=== PATIENT | female | born 1995 | race Caucasian/White ===

== ENCOUNTER 2018-02-28 13:57 | Emergency (ER) | payer OTHER ==
[2018-02-28 14:05] VITALS: BP 134/75
[2018-02-28] MEDS ORDERED: KETOROLAC 60 MG/2 ML VIAL. IM ONE (15:00)
[2018-02-28] MEDS ORDERED: CYCL-331 PO (15:52)
[2018-02-28] MEDS ORDERED: NAPR-683 PO (15:52)
--- NOTE | 2018-02-28 15:52 | PHYS DOC ---
Past History Past Medical History: Asthma Past Surgical History: Other Alcohol Use: None Drug Use: None Adult General Chief Complaint Chief Complaint: BACK PAIN OR INJURY HPI HPI Patient is a 23 year old female who presents with complaining of bilateral low back pain. Patient states she tried to clean her bed last night and had multiple movements of her back. Patient complaining of lower back pain since this morning as a constant pain that getting worse with movement. Patient denies fever and chills, abdominal pain, urinary symptom, focal neuro deficit. Review of Systems Review of Systems Constitutional: Denies fever or chills [] Eyes: Denies change in visual acuity, redness, or eye pain [] HENT: Denies nasal congestion or sore throat [] Respiratory: Denies cough or shortness of breath [] Cardiovascular: No additional information not addressed in HPI [] GI: Denies abdominal pain, nausea, vomiting, bloody stools or diarrhea [] : Denies dysuria or hematuria [] Musculoskeletal: Reports back pain] Integument: Denies rash or skin lesions [] Neurologic: Denies headache, focal weakness or sensory changes [] Endocrine: Denies polyuria or polydipsia [] All other systems were reviewed and found to be within normal limits, except as documented in this note. Current Medications Current Medications Current Medications Medications (Trade) Dose Ordered Sig/[facility] Start Time Stop Time Status Last Admin Dose Admin Ketorolac Tromethamine (Toradol Im) 60 mg 1X ONCE 02/28/18 15:00 02/28/18 15:06 DC 02/28/18 15:19 60 MG Allergies Allergies Allergies Coded Allergies Type Severity Reaction Last Updated Verified Penicillins Allergy Unknown 02/28/18 Yes amoxicillin Allergy Unknown 02/28/18 Yes Physical Exam Physical Exam Constitutional: Well developed, well nourished, mild distress, non-toxic appearance. [] HENT: Normocephalic, atraumatic Eyes: PERRLA, EOMI, conjunctiva normal, no discharge. [] Neck: Normal range of motion, no tenderness, supple, no stridor. [] Cardiovascular:Heart rate regular rhythm, no murmur [] Lungs & Thorax: Bilateral breath sounds clear to auscultation [] Abdomen: Bowel sounds normal, soft, no tenderness, no masses, no pulsatile masses. [] Skin: Warm, dry, no erythema, no rash. [] Back: No midline tenderness, no CVA tenderness, bilateral lower extremity paraspinal tenderness. [] Extremities: No tenderness, no cyanosis, no clubbing, ROM intact, no edema. [] Neurologic: Alert and oriented X 3, normal motor function, normal sensory function, no focal deficits noted. [] Psychologic: Affect normal, judgement normal, mood normal. [] Current Patient Data Vital Signs Vital Signs Date Time Temp Pulse Resp B/P (MAP) Pulse Ox O2 Delivery O2 Flow Rate FiO2 02/28/18 14:05 98.8 99 20 100 Room Air EKG EKG [] Radiology/Procedures Radiology/Procedures [] Course & Med Decision Making Course & Med Decision Making discharge: I've spoken with the patient and/or caregivers. I've explained the patient's condition, diagnosis and treatment plan based on information available to me at this time. I've answered the patient's and/or caregivers questions and addressed any concerns. The patient and/or caregivers have a good understanding the patient's diagnosis, condition and treatment plan as can be expected at this point. Vital signs have been stabilized. The patient's condition is stable for discharge from the emergency department. The patient will pursue further outpatient evaluation with her primary care provider or other designated consulting physician as outlined in the discharge instructions. Patient and/or caregivers are agreeable to this plan of care and follow-up instructions have been explained in detail. The patient and/or caregivers have received these instructions in written format and expressed understanding of these discharge instructions. The patient and her caregivers are aware that if any significant change in condition or worsening of symptoms should prompt him to immediately return to this of the closest emergency department. If an emergent department is not readily available I would encourage him to call 911. Albino Disclaimer Dragon Disclaimer This electronic medical record was generated, in whole or in part, using a voice recognition dictation system. Departure Departure: Impression: Primary Impression: Lumbosacral strain Disposition: 01 HOME, SELF-CARE (at 1548) Condition: IMPROVED Referrals: [facility] (PCP) Patient Instructions: Lumbosacral Strain Additional Instructions: Drink plenty of liquids Follow-up with your primary care physician in 3-5 days Return to ER if not getting better Apply ice on your back Scripts Naproxen (NAPROSYN) 500 Mg Tablet 500 MG PO BID for pain, #20 TAB Prov: ANDREAS OLIVEIRA MD 02/28/18 Cyclobenzaprine Hcl (CYCLOBENZAPRINE HCL) 10 Mg Tablet 1 TAB PO TID for pain, #30 TAB Prov: ANDREAS OLIVEIRA MD 02/28/18 ANDREAS OLIVEIRA MD Feb 28, 2018 15:52
== END 2018-02-28 16:05 | disposition home or self-care (01) ==
LOC: ER 13:57
DX: S39.012A Strain of muscle, fascia and tendon of lower back, initial encounter (principal); J45.909 Unspecified asthma, uncomplicated; Z88.0 Allergy status to penicillin; Z88.1 Allergy status to other antibiotic agents; X50.9XXA Other and unspecified overexertion or strenuous movements or postures, initial encounter; Y93.E9 Activity, other interior property and clothing maintenance; Y92.89 Other specified places as the place of occurrence of the external cause; Y99.8 Other external cause status
CPT/HCPCS: 96372; 99283; J1885

== ENCOUNTER 2018-04-05 03:04 | Emergency (ER) | payer OTHER ==
[~2018-04-05] VITALS: Ht 162.6 cm; Wt 61.2 kg
[~2018-04-05 03:04] MED LIST: CYCL-331 PO; NAPR-683 PO
[2018-04-05] MEDS ORDERED: IPRATRPIUM/ALBUTEROL 0.5/2.5MG 3 ML NEBU. ONE (03:08)
--- NOTE | 2018-04-05 03:08 | ED.ADGEN ---
Past History Past Medical History: Asthma Past Surgical History: Other Alcohol Use: None Drug Use: None Adult General Chief Complaint Chief Complaint ..".....I got a sore throat.. and running nose...... that usually set my asthma off... I been using my her tonight.....".." I ve been getting sick the last two days....".." I was at work ([employer]).. 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 Patient states with respiratory infections she has exacerbation of her asthma symptoms . Patient' s normal peak flows are in 300's. Patient does have home action plan. Does have prednisone and is currently on steroid taper . She is at 30 mg of prednisone a day with her taper. Patient was able to produce a peak flow of 400 while in emergency department before treatments. Patient has completed her flu vaccination this season. No recent travel. She denies any history immunosuppression. Patient has been intubated for asthma exacerbation when she is age 12. Pt. did complete her flu vaccination this season as an a requirement for employment at [employer]. Review of Systems Review of Systems Constitutional: Subjective history of fever or chills [] Eyes: Denies change in visual acuity, redness, or eye pain [] HENT: Complaints of nasal congestion and sore throat [] Respiratory:Complaints of cough and wheezing Cardiovascular: No additional information not addressed in HPI [] GI: Denies abdominal pain, nausea, vomiting, bloody stools or diarrhea [] : Denies dysuria or hematuria [] Musculoskeletal: Denies back pain or joint pain [] Integument: Denies rash or skin lesions [] Neurologic: Denies headache, focal weakness or sensory changes [] Endocrine: Denies polyuria or polydipsia [] All other systems were reviewed and found to be within normal limits, except as documented in this note. Family History Family History Noncontributory Current Medications Current Medications Current Medications Medications (Trade) Dose Ordered Sig/Geo Start Time Stop Time Status Last Admin Dose Admin Albuterol Sulfate (Ventolin Hfa Inhaler) 2 puff 1X ONCE 04/05/18 03:30 2/6/19 03:31 DC 04/05/18 03:24 2 PUFF Albuterol/ Ipratropium (Duoneb) 3 ml 1X ONCE 04/05/18 03:30 04/05/18 03:31 DC 04/05/18 03:23 3 ML Prednisone (Prednisone) 50 mg 1X ONCE 04/05/18 03:30 04/05/18 03:31 DC 04/05/18 03:33 50 MG Allergies Allergies Allergies Coded Allergies Type Severity Reaction Last Updated Verified Penicillins Allergy Unknown 02/28/18 Yes amoxicillin Allergy Unknown 02/28/18 Yes Physical Exam Physical Exam Constitutional: Moderately acute distress, non-toxic appearance. [] HENT: Normocephalic, atraumatic, bilateral external ears normal, oropharynx moist, postnasal drainage and mild pharyngeal erythema, no oral exudates, nose swollen turbinates and clear rhinorrhea. Dental caries. Eyes: PERRLA, EOMI, conjunctiva normal, no discharge. Glasses. Neck: Normal range of motion, no tenderness, supple, no stridor. [] Cardiovascular:Heart rate regular rhythm, no murmur [] Lungs & Thorax: Bilateral breath sounds equal apex with scattered wheezing on auscultation []Occasional coughing spasms. No retractions appreciated. Abdomen: Bowel sounds normal, soft, no tenderness, no masses, no pulsatile masses. [] Skin: Warm, dry, no erythema, no rash. [] Back: No tenderness, no CVA tenderness. [] Extremities: No tenderness, no cyanosis, no clubbing, ROM intact, no edema. [] Neurologic: Alert and oriented X 3, normal motor function, normal sensory function, no focal deficits noted. [] Psychologic: Affect normal, judgement normal, mood normal. [] Current Patient Data Vital Signs Vital Signs Date Time Temp Pulse Resp B/P (MAP) Pulse Ox O2 Delivery O2 Flow Rate FiO2 04/05/18 04:48 82 20 118/69 (85) 98 Room Air 04/05/18 03:19 98.3 Lab Results Laboratory Tests Test 04/05/18 03:30 Influenza Type A (Rapid) Negative (NEGATIVE) Influenza Type B (Rapid) Negative (NEGATIVE) Group A Streptococcus Rapid Negative (NEGATIVE) EKG EKG [] Radiology/Procedures Radiology/Procedures [] Course & Med Decision Making Course & Med Decision Making Pertinent Labs and Imaging studies reviewed. (See chart for details). At discharge pt. report improvement in her symptoms. Patient recommended to increase her Prednisone to 50 mg a days x 5 days before re-starting her taper. Patient take Tylenol and ibuprofen as needed for fever and discomfort. Patient to use her MDI 2 puffs with a spacer 4 times a day when she does not have her portable max of missed. Patient is to document peak flows the morning pre-and post treatments. Patient follow-up primary care. Return if any concerns. [] Final Impression Final Impression 1. Asthma Exacerbation 2. Dental caries 3. Viral Syndrome Dragon Disclaimer Dragon Disclaimer This electronic medical record was generated, in whole or in part, using a voice recognition dictation system. Discharge Summary Visit Information Final Diagnosis Problems Medical Problems: (1) Viral syndrome Status: Acute Brief Hospital Course Allergies Allergies Coded Allergies Type Severity Reaction Last Updated Verified Penicillins Allergy Unknown 02/28/18 Yes amoxicillin Allergy Unknown 02/28/18 Yes Vital Signs Vital Signs Date Time Temp Pulse Resp B/P (MAP) Pulse Ox O2 Delivery O2 Flow Rate FiO2 04/05/18 04:48 82 20 118/69 (85) 98 Room Air 04/05/18 03:19 98.3 Lab Results Laboratory Tests Test 04/05/18 03:30 Influenza Type A (Rapid) Negative (NEGATIVE) Influenza Type B (Rapid) Negative (NEGATIVE) Group A Streptococcus Rapid Negative (NEGATIVE) Brief Hospital Course 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 Discharge Information Condition at Discharge: Improved, Stable Disposition/Orders: D/C to Home Dischare Medications Current Medications Prednisone (Prednisone) 50 mg 1X ONCE PO Last administered on 04/05/18at 03:33; Admin Dose 50 MG; Start 04/05/18 at 03:30; Stop 04/05/18 at 03:31; Status DC Albuterol/ Ipratropium (Duoneb) 3 ml 1X ONCE NEB Last administered on at 03:23; Admin Dose 3 ML; Start 04/05/18 at 03:30; Stop 04/05/18 at 03:31; Status DC Albuterol Sulfate (Ventolin Hfa Inhaler) 2 puff 1X ONCE INH Last administered on 04/05/18at 03:24; Admin Dose 2 PUFF; Start 04/05/18 at 03:30; Stop 04/05/18 at 03 :31; Status DC Active Scripts Active Naprosyn (Naproxen) 500 Mg Tablet 500 Mg PO BID Cyclobenzaprine Hcl 10 Mg Tablet 1 Tab PO TID Discharge Summary Visit Information Final Diagnosis Problems Medical Problems: (1) Viral syndrome Status: Acute Brief Hospital Course Allergies Allergies Coded Allergies Type Severity Reaction Last Updated Verified Penicillins Allergy Unknown 02/28/18 Yes amoxicillin Allergy Unknown 02/28/18 Yes Vital Signs Vital Signs Date Time Temp Pulse Resp B/P (MAP) Pulse Ox O2 Delivery O2 Flow Rate FiO2 04/05/18 04:48 82 20 118/69 (85) 98 Room Air 04/05/18 03:19 98.3 Lab Results Laboratory Tests Test 04/05/18 03:30 Influenza Type A (Rapid) Negative (NEGATIVE) Influenza Type B (Rapid) Negative (NEGATIVE) Group A Streptococcus Rapid Negative (NEGATIVE) Brief Hospital Course 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 Discharge Information Condition at Discharge: Improved, Stable Disposition/Orders: D/C to Home Dischare Medications Current Medications Prednisone (Prednisone) 50 mg 1X ONCE PO Last administered on 04/05/18at 03:33; Admin Dose 50 MG; Start 04/05/18 at 03:30; Stop 04/05/18 at 03:31; Status DC Albuterol/ Ipratropium (Duoneb) 3 ml 1X ONCE NEB Last administered on at 03:23; Admin Dose 3 ML; Start 04/05/18 at 03:30; Stop 04/05/18 at 03:31; Status DC Albuterol Sulfate (Ventolin Hfa Inhaler) 2 puff 1X ONCE INH Last administered on 04/05/18at 03:24; Admin Dose 2 PUFF; Start 04/05/18 at 03:30; Stop 04/05/18 at 03 :31; Status DC Active Scripts Active Naprosyn (Naproxen) 500 Mg Tablet 500 Mg PO BID Cyclobenzaprine Hcl 10 Mg Tablet 1 Tab PO TID Dragon Disclaimer This chart was dictated in whole or in part using Voice Recognition software in a busy, high-work load, and often noisy Emergency Department environment. It may contain unintended and wholly unrecognized errors or omissions. Dragon Disclaimer This chart was dictated in whole or in part using Voice Recognition software in a busy, high-work load, and often noisy Emergency Department environment. It may contain unintended and wholly unrecognized errors or omissions. YSABEL ENRIQUE MD Apr 05, 2018 03:07
[2018-04-05] MEDS ORDERED: predniSONE 20 MG TABLET PO ONE (03:30)
[2018-04-05] MEDS ORDERED: ALBUTEROL SULFATE 8GM INHALER. INH ONE (03:30)
[2018-04-05] MEDS ORDERED: IPRATRPIUM/ALBUTEROL 0.5/2.5MG 3 ML NEBU. NEB ONE (03:30)
[2018-04-05 04:29] LABS: INFLUENZA A PATIENT NEGATIVE (NEGATIVE); INFLUENZA B PATIENT NEGATIVE (NEGATIVE)
[2018-04-05 04:48] VITALS: BP 118/69
== END 2018-04-05 04:49 | disposition home or self-care (01) ==
LOC: ER 03:04
DX: J45.901 Unspecified asthma with (acute) exacerbation (principal); B34.9 Viral infection, unspecified; K02.9 Dental caries, unspecified; Z88.0 Allergy status to penicillin; Z88.1 Allergy status to other antibiotic agents
CPT/HCPCS: 87070; 87804; 87880; 94640; 99284; J7512; J7613; J7620; 94664

== ENCOUNTER → 2018-04-07 | Outpatient (CLI) | payer OTHER ==
[2018-04-05 04:48] VITALS: BP 118/69
[~2018-04-07] MED LIST changes: +GUAI118L20 PO; +LEVO500T59 PO
[2018-04-07 14:34] LABS: ALBUMIN 4.1 g/dL (3.4-5.0); ALBUMIN/GLOBULIN RATIO 1.1 (1.0-1.7); CALCIUM 8.9 mg/dL (8.5-10.1); CREATININE 0.6 mg/dL (0.6-1.0); GFR 121.8; POTASSIUM 3.7 mmol/L (3.5-5.1); TOTAL BILIRUBIN 0.3 mg/dL (0.2-1.0); TOTAL PROTEIN 7.7 g/dL (6.4-8.2)
[2018-04-07 14:36] LABS: BASO # 0.1 x10^3/uL (0.0-0.2); BASO % 1 % (0-3); EOS # 0.2 x10^3/uL (0.0-0.7); EOS % 2 % (0-3); HEMATOCRIT 41.5 % (36.0-47.0); HEMOGLOBIN 13.6 g/dL (12.0-15.5); LYMPH % 24 % (24-48); MEAN CORPUSCULAR HEMOGLOBIN 29 pg (25-35); MEAN CORPUSCULAR HGB CONC 33 g/dL (31-37); MEAN CORPUSCULAR VOLUME 89 fL (79-100); MONO # 0.8 x10^3/uL (0.0-1.1); MONO % 7 % (0-9); NEUT # 8.3 x10^3uL (1.8-7.7); NEUT % 67 % (31-73); PLATELET COUNT 373 x10^3/uL (140-400); RED BLOOD COUNT 4.68 x10^6/uL (3.50-5.40); RED CELL DISTRIBUTION WIDTH 14.4 % (11.5-14.5); WHITE BLOOD COUNT 12.4 x10^3/uL (4.0-11.0)
[2018-04-08 10:22] LABS: FREE T4 1.05 ng/dL (0.76-1.46); THYROID STIM HORMONE (TSH) 1.319 uIU/mL (0.358-3.740)
== END | disposition home or self-care (01) ==
LOC: PMG 13:46
PROVIDERS: ATTEND Registered Nurse
DX: Z13.6 Encounter for screening for cardiovascular disorders (principal); Z13.29 Encounter for screening for other suspected endocrine disorder; J45.909 Unspecified asthma, uncomplicated; Z76.89 Persons encountering health services in other specified circumstances
CPT/HCPCS: 36415; 80053; 80061; 84439; 84443; 85025

== ENCOUNTER 2018-09-05 06:12 | Emergency (ER) | payer OTHER ==
[~2018-09-05] VITALS: Ht 162.6 cm; Wt 63.4 kg
[~2018-09-05 06:12] MED LIST changes: -GUAI118L20 PO; -LEVO500T59 PO
--- NOTE | 2018-09-05 06:33 | PHYS DOC ---
Past History Past Medical History: Asthma Past Surgical History: No Surgical History Alcohol Use: None Drug Use: None Adult General Chief Complaint Chief Complaint: SHORTNESS OF BREATH HPI HPI Patient is a 23-year-old female who presents with complaint of cough and shortness of breath that started a little over a week ago. Patient indicates that over the last few days she has developed a productive cough of yellow sputum. She denies any fever. She does admit to some chest soreness that she states is associated with all the coughing. She does have a history of asthma and indicates that she has been using her nebulizer quite a bit without relief. She indicates that symptoms are worsened with exertion. She states that nothing is improving her symptoms.[] Review of Systems Review of Systems Constitutional: Denies fever or chills [] Respiratory: Complains of cough and shortness of breath [] Cardiovascular: No additional information not addressed in HPI [] Integument: Denies rash or skin lesions [] Neurologic: Denies headache, focal weakness or sensory changes [] All other systems were reviewed and found to be within normal limits, except as documented in this note. Current Medications Current Medications Current Medications Medications (Trade) Dose Ordered Sig/Geo Start Time Stop Time Status Last Admin Dose Admin Albuterol/ Ipratropium (Duoneb) 3 ml 1X ONCE 09/05/18 07:00 09/05/18 07:01 Methylprednisolone Sodium Succinate (SOLU-Medrol 125MG VIAL) 125 mg 1X ONCE 09/05/18 07:00 09/05/18 07:01 Sodium Chloride 1,000 ml @ 1,000 mls/hr Q1H 09/05/18 07:00 09/05/18 07:59 Allergies Allergies Allergies Coded Allergies Type Severity Reaction Last Updated Verified Penicillins Allergy Unknown 02/28/18 Yes amoxicillin Allergy Unknown 02/28/18 Yes Physical Exam Physical Exam Constitutional: Well developed, well nourished, no acute distress, non-toxic appearance. [] HENT: Normocephalic, atraumatic, bilateral external ears normal, oropharynx moist, no oral exudates, nose normal. [] Eyes: PERRLA, EOMI, conjunctiva normal, no discharge. [] Neck: Normal range of motion, no tenderness, supple, no stridor. [] Cardiovascular: Tachycardic rate with regular rhythm[] Lungs & Thorax: Good air movement is noted throughout. There are fine inspiratory and expiratory wheezes noted in the upper lobes to auscultation [] Abdomen: Bowel sounds normal, soft. [] Skin: Warm, dry, no erythema, no rash. [] Extremities: No tenderness, no cyanosis, no clubbing, ROM intact. [] Neurologic: Alert and oriented X 3, no focal deficits noted. [] Current Patient Data Vital Signs Vital Signs Date Time Temp Pulse Resp B/P (MAP) Pulse Ox O2 Delivery O2 Flow Rate FiO2 09/05/18 06:22 98.3 133 22 99 Room Air EKG EKG [] Radiology/Procedures Radiology/Procedures [] Impressions: Chest x-ray demonstrates no acute process. Course & Med Decision Making Course & Med Decision Making Pertinent Labs and Imaging studies reviewed. (See chart for details) [] Dragon Disclaimer Dragon Disclaimer This electronic medical record was generated, in whole or in part, using a voice recognition dictation system. Departure Departure: Impression: Primary Impression: Acute bronchitis with bronchospasm Disposition: HOME, SELF-CARE Condition: STABLE Referrals: [facility] (PCP) Patient Instructions: Acute Bronchitis, Bronchospasm, Adult, Form - Excuse from Work, School, or Physical Activity Scripts Guaifenesin/Codeine Phosphate (CHERATUSSIN AC SYRUP) 118 Ml Liquid 5 ML PO PRN Q6HRS PRN for COUGH, #120 ML Prov: BILLY PUENTES Jr. DO 09/05/18 Levofloxacin (LEVAQUIN) 500 Mg Tablet 1 TAB PO DAILY for infection, #7 TAB Prov: BILLY PUENTES Jr. DO 09/05/18 BILLY PUENTES Jr. DO Sep 05, 2018 06:32
[2018-09-05 07:00] LABS: BASO % 0 % (0-3); EOS % 0 % (0-3); HEMATOCRIT 41.6 % (36.0-47.0); HEMOGLOBIN 13.7 g/dL (12.0-15.5); LYMPH # 0.6 x10^3/uL (1.0-4.8); LYMPH % 4 % (24-48); MEAN CORPUSCULAR HEMOGLOBIN 29 pg (25-35); MEAN CORPUSCULAR HGB CONC 33 g/dL (31-37); MEAN CORPUSCULAR VOLUME 90 fL (79-100); MONO # 0.3 x10^3/uL (0.0-1.1); MONO % 2 % (0-9); NEUT # 15.7 x10^3uL (1.8-7.7); NEUT % 94 % (31-73); PLATELET COUNT 392 x10^3/uL (140-400); RED BLOOD COUNT 4.65 x10^6/uL (3.50-5.40); RED CELL DISTRIBUTION WIDTH 15.7 % (11.5-14.5); WHITE BLOOD COUNT 16.6 x10^3/uL (4.0-11.0)
[2018-09-05] MEDS ORDERED: methylPREDNISolone SOD SUCC PF 125 MG/2 ML VIAL. IV ONE (07:00)
[2018-09-05] MEDS ORDERED: IV NORMAL SALINE 1,000ML 1,000 ML IV SCH (07:00)
[2018-09-05] MEDS ORDERED: IPRATRPIUM/ALBUTEROL 0.5/2.5MG 3 ML NEBU. NEB ONE (07:00)
[2018-09-05 07:20] LABS: ALBUMIN 4.2 g/dL (3.4-5.0); ALBUMIN/GLOBULIN RATIO 1.1 (1.0-1.7); CALCIUM 9.4 mg/dL (8.5-10.1); CREATININE 0.8 mg/dL (0.6-1.0); GFR 87.4; TOTAL BILIRUBIN 0.2 mg/dL (0.2-1.0); TOTAL PROTEIN 8.2 g/dL (6.4-8.2)
[2018-09-05] MEDS ORDERED: GUAI118L20 PO (07:38)
[2018-09-05] MEDS ORDERED: LEVO500T59 PO (07:38)
--- NOTE | 2018-09-05 07:45 | RAD ---
CHEST PA LATERAL History: Shortness of breath and cough. Asthma. Comparison: None. Findings: The cardiomediastinal silhouette is normal. Pulmonary vasculature is normal. The lungs are clear. No pleural effusion or pneumothorax is seen. There is no acute bone abnormality. Fluid level within the stomach is noted. IMPRESSION: No acute cardiopulmonary process. Electronically signed by: Rajesh Hendrix MD (09/05/2018 7:42 AM) [facility]
[2018-09-05 07:59] VITALS: BP 134/84
[2018-09-05] MEDS ORDERED: levoFLOXacin 500 MG TABLET PO ONE (08:00)
[2018-09-05 08:21] LABS: % LYMPHS 3 % (24-48); % MONOS 2 % (0-10); % SEGS 95 % (35-66)
[2018-09-05 08:22] LABS: TOXIC GRANULATION PRESENT
[2018-09-05 08:34] LABS: PLT ESTIMATE ADEQUATE (ADEQUATE)
== END 2018-09-05 08:14 | disposition home or self-care (01) ==
LOC: ER 06:12
DX: J20.9 Acute bronchitis, unspecified (principal); J45.909 Unspecified asthma, uncomplicated; Z88.0 Allergy status to penicillin; Z88.1 Allergy status to other antibiotic agents
CPT/HCPCS: 36415; 71046; 80053; 85007; 85025; 85379; 94640; 96374; 99285; J2930; J7620; J7030

== ENCOUNTER 2019-09-14 01:32 | Emergency (ER) | payer OTHER ==
[~2019-09-14] VITALS: Ht 162.6 cm; Wt 66.4 kg
[~2019-09-14 01:32] MED LIST changes: +GUAI118L20 PO; +LEVO500T59 PO
[2019-09-14] MEDS ORDERED: PRED20TA PO (01:40)
--- NOTE | 2019-09-14 01:41 | PHYS DOC ---
Past History Past Medical History: Asthma Past Surgical History: No Surgical History Smoking: Non-smoker Alcohol Use: None Drug Use: None General Adult EDM: Chief Complaint: ASTHMA HPI: HPI: 24-year-old female with past medical history of asthma presents with report of increased cough which started after patient was working on the floor. Patient reports has had ongoing issues with asthma exacerbation. Reports has been currently taking prednisone. Patient reports using a MDI with limited improvement. Denies trauma. Denies known sick contacts. Patient denies known on protected to COVID-19 exposure. 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 Review of Systems: Review of Systems: Constitutional: Denies fever or chills Eyes: Denies redness or eye pain HENT: Denies nasal congestion or sore throat Respiratory: Reports cough and shortness of breath Cardiovascular: Denies chest pain or palpitations GI: Denies abdominal pain, nausea, or vomiting : Denies dysuria or hematuria Musculoskeletal: Denies back pain or joint pain Integument: Denies rash or skin lesions Neurologic: Denies headache, focal weakness or sensory changes Complete systems were reviewed and found to be within normal limits, except as documented in this note. Allergies: Allergies: Allergies Coded Allergies Type Severity Reaction Last Updated Verified Penicillins Allergy Unknown 02/28/18 Yes amoxicillin Allergy Unknown 02/28/18 Yes Physical Exam: PE: Constitutional: Well developed, well nourished, no acute distress, non-toxic appearance HENT: Normocephalic, atraumatic Eyes: Conjunctiva normal, no discharge Neck: Normal range of motion, no tenderness, supple Cardiovascular: Heart rate normal, regular rhythm Lungs & Thorax: Bilateral breath sounds clear to auscultation, anterior scattered wheezing Abdomen: Soft, no tenderness Skin: Warm, dry, no erythema, no rash Back: No tenderness, no CVA tenderness Extremities: No tenderness, ROM intact, no edema Neurologic: Alert and oriented X 3, no focal deficits noted Psychologic: Affect anxious, judgment normal EKG: EKG: [] Radiology/Procedures: Radiology/Procedures: PROCEDURE: CHEST AP ONLY AP portable chest radiograph 09/14/2019 Clinical History: Cough and shortness of breath. An AP erect portable digital radiograph of the chest was obtained. Comparison study is dated 09/05/2018. The cardiac and mediastinal silhouettes are within normal limits in size and configuration. No pulmonary infiltrate is seen. No pleural effusion or pneumothorax is noted. The osseous structures are grossly intact. Impression: No acute abnormality is seen. Electronically signed by: Ceferino Stahl MD (09/14/2019 2:13 AM) [id number] Course & Med Decision Making: Course & Med Decision Making Pertinent Imaging studies reviewed. (See chart for details) Patient presents with HPI and physical exam consistent for asthma exacerbation. Physical exam also with some signs of anxiety. Patient previously had used a metered-dose inhaler. A dose of oral dexamethasone provided. Chest x-ray without acute process. Patient stable for discharge with outpatient follow-up with PCP. Discussed findings and plan with patient, who acknowledges understanding and agreement. Albino Disclaimer: Albino Disclaimer: This electronic medical record was generated, in whole or in part, using a voice recognition dictation system. Departure Departure: Impression: Primary Impression: Asthma Qualified Codes: J45.20 - Mild intermittent asthma, uncomplicated Disposition: HOME/RESIDENCE PRIOR TO ADM Condition: STABLE Referrals: [facility] (PCP) Patient Instructions: Asthma, Adult, [id number] Justification of Admission: Justification of Admission: Justification of Admission Dx: N/A FRENCH MCKAY DO Sep 14, 2019 01:41
[2019-09-14 01:44] VITALS: BP 137/113
[2019-09-14] MEDS ORDERED: DEXAMETHASONE 4 MG TABLET PO ONE (02:00)
--- NOTE | 2019-09-14 02:16 | RAD ---
AP portable chest radiograph 09/14/2019 Clinical History: Cough and shortness of breath. An AP erect portable digital radiograph of the chest was obtained. Comparison study is dated 09/05/2018. The cardiac and mediastinal silhouettes are within normal limits in size and configuration. No pulmonary infiltrate is seen. No pleural effusion or pneumothorax is noted. The osseous structures are grossly intact. Impression: No acute abnormality is seen. Electronically signed by: Ceferino Stahl MD (09/14/2019 2:13 AM) [id number]
== END 2019-09-14 01:55 | disposition home or self-care (01) ==
LOC: ER 01:32
DX: J45.20 Mild intermittent asthma, uncomplicated (principal); Z88.0 Allergy status to penicillin; Z88.1 Allergy status to other antibiotic agents
CPT/HCPCS: 71045; 99283; J8540

== ENCOUNTER → 2019-09-18 | Outpatient (CLI) | payer OTHER ==
[2019-09-14 01:44] VITALS: BP 137/113
[~2019-09-18] MED LIST changes: +PRED20TA PO
--- NOTE | 2019-09-18 15:21 | RAD ---
CT CHEST WO CONTRAST INDICATION: short of breath, hx of asthma COMPARISON STUDY: None. TECHNIQUE: Unenhanced axial images were obtained through the lungs and upper abdomen. Coronal and sagittal multiplanar reconstructions were also obtained. PQRS compliance statement: One or more of the following individualized dose reduction techniques were utilized for this examination: 1. Automated exposure control 2. Adjustment of the mA and/or kV according to patient size 3. Use of iterative reconstruction technique FINDINGS: Lungs and Airways: No pulmonary mass or consolidation. Normal central airways. Pleura: The pleural spaces are normal. Heart and Mediastinum: The visualized thyroid gland is normal in size and attenuation. No axillary or supraclavicular lymphadenopathy. No mediastinal, hilar or retrocrural lymphadenopathy. The heart and pericardium are within normal limits. The great vessels of the thorax are normal. Residual thymic tissue. Abdomen: The visualized abdominal organs demonstrate no abnormality. Bones and Soft Tissues: The visualized skeletal structures and soft tissues of the chest wall are within normal limits. IMPRESSION: No pulmonary mass or consolidation. No thoracic lymphadenopathy. Electronically signed by: Chaz Hadley MD (09/18/2019 3:19 PM) [id number]
== END | disposition home or self-care (01) ==
LOC: CT 13:45
PROVIDERS: ATTEND Physician Assistant Medical
DX: R06.02 Shortness of breath (principal)
CPT/HCPCS: 71250

== ENCOUNTER 2020-06-01 00:28 | Emergency (ER) | payer OTHER ==
[~2020-06-01] VITALS: Ht 162.6 cm; Wt 66.4 kg
--- NOTE | 2020-06-01 00:35 | PHYS DOC ---
Past History Past Medical History: Asthma Past Surgical History: No Surgical History Smoking: Non-smoker Alcohol Use: Rarely Drug Use: None General Adult HPI: HPI: :" .. I am having a really bad asthma attack.. I have one now about 3 x day... "" The change of season .. really gets to me.. " Patient is a 25 year old prime female [employer] employee who presents with above hx and complaints of asthma exacerbation. Patient has at least 3 significant asthma exacerbations per year. Has not been on steroids recently. Does have significant seasonal allergies. Patient is up-to-date with vaccinations. Has not had a Pneumovax. Patient normal peak flows approximately 250. Her predicted should be closer to 450. Patient is exposed to sick individuals when they present to the emergency department. Patient has not been using her MDI more frequently without any significant improvement. Pt. follows with Dr. Mayi Samuels, and Dr. Hernández [facility]. No recent travel. Patient never been intubated for severe exacerbation of her asthma. Review of Systems: Review of Systems: Constitutional: Denies fever or chills Eyes: Denies change in visual acuity HENT: Denies nasal congestion or sore throat Respiratory: History of cough, shortness of breath, and wheezing Cardiovascular: Denies chest pain or edema GI: Denies abdominal pain, nausea, vomiting, bloody stools or diarrhea : Denies dysuria Musculoskeletal: Denies back pain or joint pain Integument: Denies rash Neurologic: Denies headache, focal weakness or sensory changes Endocrine: Denies polyuria or polydipsia Lymphatic: Denies swollen glands Psychiatric: Denies depression or anxiety Family History: Family History: Noncontributory to presentation Current Medications: Current Meds: See nursing for home meds Allergies: Allergies: Allergies Coded Allergies Type Severity Reaction Last Updated Verified Penicillins Allergy Intermediate 09/14/19 Yes amoxicillin Allergy Intermediate 09/14/19 Yes Physical Exam: PE: Constitutional: Well developed, well nourished, moderate acute distress, non- toxic appearance. [] HENT: Normocephalic, atraumatic, bilateral external ears normal, oropharynx moist, postnasal drainage, no oral exudates, nose swollen turbinates and clear rhinorrhea Eyes: PERRLA, EOMI, conjunctiva normal, no discharge. Glasses Neck: Normal range of motion, no tenderness, supple, no stridor. [] Cardiovascular: Tachycardia heart rate regular rhythm, no murmur [] Lungs & Thorax: Bilateral breath sounds equal apex with scattered wheezes throughout on auscultation [] Abdomen: Bowel sounds normal, soft, no tenderness, no masses, no pulsatile masses. [] Skin: Warm, dry, no erythema, no rash. [] Back: No tenderness, no CVA tenderness. [] Extremities: No tenderness, no cyanosis, no clubbing, ROM intact, no edema. [] Neurologic: Alert and oriented X 3, normal motor function, normal sensory function, no focal deficits noted. [] Psychologic: Affect anxious, judgement normal, mood normal. [] EKG: EKG: My interpretation of EKG shows a sinus tachycardia 134 bpm. No findings of acute STEMI with contralateral changes. Does have strain pattern with left linder axis [] Radiology/Procedures: Radiology/Procedures: [][place] [address] IMAGING REPORT Signed PATIENT: ISABELLE LACKEY LACCOUNT: [id number] : 1995 LOCATION: ER AGE: 25 SEX: F EXAM STATUS: REG ER ORD. PHYSICIAN: YSABEL ENRIQUE MD REASON: respiratory failure PROCEDURE: PORTABLE CHEST 1V XR CHEST 1V History: Reason: respiratory failure / Spl. Instructions: / History: Comparison: September 14, 2019 Findings: No consolidation or pleural effusion. Normal heart size. No pneumothorax. Impression: 1. No acute cardiopulmonary process. Electronically signed by: Ellis Sosa DO (06/01/2020 2:19 AM) [facility] DICTATED AND SIGNED BY: ELLIS SOSA DO DATE: 06/01/208 CC: YSABEL ENRIQUE MD; JULI SAMUELS MD ~MTH0 0 Heart Score: C/O Chest Pain: N/A HEART Score for Chest Pain: HEART Score for Chest Pain Response (Comments) Value History Moderately Suspicious 1 ECG Nonspecific Repolarizatio 1 Age < 45 0 Risk Factors 1 or 2 Risk Factors 1 Troponin < Normal Limit 0 Total 3 Risk Factors: Risk Factors: DM, Current or recent (<one month) smoker, HTN, HLP, family history of CAD, obesity. Risk Scores: Score 0 - 3: 2.5% MACE over next 6 weeks - Discharge Home Score 4 - 6: 20.3% MACE over next 6 weeks - Admit for Clinical Observation Score 7 - 10: 72.7% MACE over next 6 weeks - Early Invasive Strategies Course & Med Decision Making: Course & Med Decision Making Pertinent Labs and Imaging studies reviewed. (See chart for details) Pt. currently declines admission. 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 Patient continue prednisone 50 mg daily. Discussed with primary care if she is to continue with a taper. Patient continue her other allergy meds and asthma meds as directed. May use MDI 2 puffs 4 times a day. Impression: 1. Asthma Exacerbation 2. Mild leukocytosis 3. Elevated glucose 215 [] Dragon Disclaimer: Dragon Disclaimer: This electronic medical record was generated, in whole or in part, using a voice recognition dictation system. Departure Departure: Referrals: DHRUV FELIZ (PCP) Scripts Prednisone (PREDNISONE) 50 Mg Tablet 50 MG PO DAILY for asthma for 10 Days, #10 TAB Prov: YSABEL ENRIQUE MD 06/01/20 [place] Disclaimer This chart was dictated in whole or in part using Voice Recognition software in a busy, high-work load, and often noisy Emergency Department environment. It may contain unintended and wholly unrecognized errors or omissions. YSABEL ENRIQUE MD Jun 01, 2020 00:35
[2020-06-01 00:38] VITALS: BP 139/74
[2020-06-01] MEDS ORDERED: IPRATRPIUM/ALBUTEROL 0.5/2.5MG 3 ML NEBU. NEB ONE ×3 (00:45→03:15)
[2020-06-01] MEDS ORDERED: predniSONE 10 MG TABLET PO ONE (00:45)
[2020-06-01] MEDS ORDERED: ALBUTEROL SULFATE 2.5 MG/3 ML NEBU. ONE (00:50)
[2020-06-01 01:24] LABS: BACTERIA,URINE 0 /HPF (0-FEW); BILIRUBIN,URINE NEG (NEG); CLARITY,URINE CLEAR; COLOR,URINE YELLOW; GLUCOSE,URINE NEG (NEG); NITRITE,URINE NEG (NEG); RBC,URINE 0 /HPF (0-2); SQUAMOUS EPITHELIAL CELL,UR FEW /LPF; UROBILINOGEN,URINE 0.2 mg/dL (0.2 mg/dL); WBC,URINE OCC /HPF (0-4)
[2020-06-01 01:29] LABS: AMPHETAMINE/METHAMPHETAMINE NEG (NEG); BARBITURATES NEG (NEG); BENZODIAZEPINES NEG (NEG); CANNABINOIDS NEG (NEG); COCAINE NEG (NEG); METHADONE NEG (NEG); OPIATES NEG (NEG); PHENCYCLIDINE NEG (NEG)
[2020-06-01] MEDS ORDERED: methylPREDNISolone SOD SUCC PF 125 MG/2 ML VIAL. IV ONE (01:30)
[2020-06-01] MEDS ORDERED: MAGNESIUM SULFATE 2GM 50 ML IV ONE (01:30)
[2020-06-01] MEDS ORDERED: IV RINGERS SOLUTION,LACTATED 1,000 ML IV SCH (01:30)
[2020-06-01 02:05] LABS: BASO # 0.1 x10^3/uL (0.0-0.2); BASO % 1 % (0-3); EOS # 0.4 x10^3/uL (0.0-0.7); EOS % 3 % (0-3); HEMATOCRIT 38.3 % (36.0-47.0); HEMOGLOBIN 12.5 g/dL (12.0-15.5); LYMPH # 3.5 x10^3/uL (1.0-4.8); LYMPH % 25 % (24-48); MEAN CORPUSCULAR HEMOGLOBIN 29 pg (25-35); MEAN CORPUSCULAR HGB CONC 33 g/dL (31-37); MEAN CORPUSCULAR VOLUME 88 fL (79-100); MONO # 0.9 x10^3/uL (0.0-1.1); MONO % 7 % (0-9); NEUT # 9.3 x10^3uL (1.8-7.7); NEUT % 66 % (31-73); PLATELET COUNT 289 x10^3/uL (140-400); RED BLOOD COUNT 4.35 x10^6/uL (3.50-5.40); WHITE BLOOD COUNT 14.1 x10^3/uL (4.0-11.0)
[2020-06-01 02:16] LABS: ANION GAP 13 (6-14); BLOOD UREA NITROGEN 28 mg/dL (7-20); CALCIUM 8.5 mg/dL (8.5-10.1); CARBON DIOXIDE 21 mmol/L (21-32); CHLORIDE 105 mmol/L (98-107); CREATININE 0.9 mg/dL (0.6-1.0); GFR 75.1; GLUCOSE 215 mg/dL (70-99); POTASSIUM 3.5 mmol/L (3.5-5.1); SODIUM 139 mmol/L (136-145)
--- NOTE | 2020-06-01 02:21 | RAD ---
XR CHEST 1V History: Reason: respiratory failure / Spl. Instructions: / History: Comparison: September 14, 2019 Findings: No consolidation or pleural effusion. Normal heart size. No pneumothorax. Impression: 1. No acute cardiopulmonary process. Electronically signed by: Ellis Sosa DO (06/01/2020 2:19 AM) [facility]
[2020-06-01 02:22] LABS: ALBUMIN 3.9 g/dL (3.4-5.0); ALK PHOS 75 U/L (46-116); ALT (SGPT) 24 U/L (14-59); AST (SGOT) 12 U/L (15-37); DIRECT BILIRUBIN < 0.1 mg/dL (0.0-0.2); MAGNESIUM 1.6 mg/dL (1.8-2.4); TOTAL BILIRUBIN 0.1 mg/dL (0.2-1.0); TOTAL PROTEIN 7.4 g/dL (6.4-8.2)
[2020-06-01] MEDS ORDERED: PRED50TA PO (04:20)
--- NOTE | 2020-06-01 06:26 | EKG ---
[address] [address] Test Date: 2020-06-01 Test Time: 01:38:29 Pat Name: ISABELLE LACKEY Department: Room: Gender: F Supervisor Contact Lens: : 1995 Requested By: YSABEL ENRIQUE Order Number: [id number] Reading MD: Measurements Intervals [place] Rate: 134 P: [place]: QRS: -5 QRSD: 74 T: 34 QT: 286 QTc: 427 Interpretive Statements SUPRAVENTRICULAR TACHYCARDIA LEFTWARD AXIS OTHERWISE NORMAL ECG RI6.02 No previous ECG available for comparison
== END 2020-06-01 04:25 | disposition home or self-care (01) ==
LOC: ER 00:28
DX: J45.901 Unspecified asthma with (acute) exacerbation (principal); D72.829 Elevated white blood cell count, unspecified; R73.9 Hyperglycemia, unspecified; Z88.0 Allergy status to penicillin; Z88.1 Allergy status to other antibiotic agents
CPT/HCPCS: 36415; 71045; 80048; 80076; 80307; 81001; 81025; 82550; 83735; 84443; 84484; 85025; 85379; 85610; 93005; 94644; 96365; 96366; 96375; 99285; J2930; J3475; J7120; J7512; 94640

== ENCOUNTER 2020-10-04 23:00 | Emergency (ER) | payer OTHER ==
[~2020-10-04] VITALS: Ht 162.6 cm; Wt 69.5 kg
[~2020-10-04 23:00] MED LIST changes: +PRED50TA PO
--- NOTE | 2020-10-04 23:23 | PHYS DOC ---
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 Patient has history of lifetime easily exacerbated asthma. Patient has been somewhat steroid dependent in the past 30 days for her asthma. Has follow-up with pulmonology in the past. Currently in transition to a job at [employer] from [employer]. Patient currently on steroids. Has been using her home meds as previous directed. Patient presents in obvious acute asthma exacerbation. Patient has multiple triggers. Patient does not know her peak flow. Patient has not received Covid vaccination. Patient denies any recent travel. Denies any specific ill contacts at home but is around hospital patients. Patient denies any history of immunosuppression. Patient denies any history of coagulopathy or DVT or pulmonary embolisms. Patient does have past follow-up with pulmonology as well as [facility] pulmonology Dr. Shaver. Review of Systems: Review of Systems: Constitutional: Denies fever or chills Eyes: Denies change in visual acuity HENT: Denies nasal congestion or sore throat Respiratory: Complains of cough and shortness of breath Cardiovascular: Denies chest pain or edema GI: Denies abdominal pain, nausea, vomiting, bloody stools or diarrhea : Denies dysuria Musculoskeletal: Denies back pain or joint pain Integument: Denies rash Neurologic: Denies headache, focal weakness or sensory changes Endocrine: Denies polyuria or polydipsia Lymphatic: Denies swollen glands Psychiatric: Denies depression or anxiety Family History: Family History: Noncontributory to current presentation Current Medications: Current Meds: See nursing for home meds Allergies: Allergies: Allergies Coded Allergies Type Severity Reaction Last Updated Verified Penicillins Allergy Intermediate 10/04/20 Yes amoxicillin Allergy Intermediate 10/04/20 Yes Physical Exam: PE: Constitutional: Well developed, well nourished, in acute distress, non-toxic appearance. [] HENT: Normocephalic, atraumatic, bilateral external ears normal, oropharynx moist, no oral exudates, nose normal. [] Eyes: PERRLA, EOMI, conjunctiva normal, no discharge. [] Neck: Normal range of motion, no tenderness, supple, no stridor. [] Cardiovascular: Tachycardia heart rate regular rhythm, no murmur [] Lungs & Thorax: Bilateral breath sounds equal apex with scattered wheezing throughout auscultation [] Abdomen: Bowel sounds normal, soft, no tenderness, no masses, no pulsatile masses. [] Skin: Warm, dry, no erythema, no rash. [] Back: No tenderness, no CVA tenderness. [] Extremities: No tenderness, no cyanosis, no clubbing, ROM intact, no edema. [] Neurologic: Alert and oriented X 3, normal motor function, normal sensory function, no focal deficits noted. [] Psychologic: Affect anxious, judgement normal, mood normal. [] Current Patient Data: Vital Signs: Vital Signs Date Time Temp Pulse Resp B/P (MAP) Pulse Ox O2 Delivery O2 Flow Rate FiO2 10/04/20 23:09 98.8 142 28 144/104 96 Room Air EKG: EKG: My interpretation EKG shows a sinus tachycardia 128 bpm. Bimodal P waves and left leads. Leftward axis. Abnormal EKG. Time of EKG is 2319 hrs. [] Radiology/Procedures: Radiology/Procedures: [][place] [address] IMAGING REPORT Signed PATIENT: ISABELLE LACKEY LACCOUNT: [id number] : 1995 LOCATION: ER AGE: 25 SEX: F EXAM STATUS: REG ER ORD. PHYSICIAN: YSABEL ENRIQUE MD REASON: dyspnea, OMNI 350, 90ml PROCEDURE: CT ANGIOGRAPHY CHEST Study: CT CHEST WITH CONTRAST - PULMONARY ANGIOGRAM History: Dyspnea. Embolism. Comparison: CT chest 09/18/2019 Technique: Helical CT of the chest performed after the administration of 90 cc Omnipaque 350 intravenous contrast and timed for angiographic evaluation of the pulmonary arteries per PE protocol. Coronal and sagittal 3D MIP reformations were obtained. One or more of the following individualized dose reduction techniques were utilized for this examination: 1. Automated exposure control 2. Adjustment of the mA and/or kV according to patient size 3. Use of iterative reconstruction technique. Findings: Pulmonary Arteries: No main, lobar or segmental pulmonary embolism. Main pulmonary artery caliber is within normal limits. Heart/Systemic Vasculature: No aortic aneurysm or dissection. The visualized great vessels are patent. The left vertebral artery originates from the arch. No CT manifestations of overt right heart strain. Mediastinum: No lymphadenopathy or pericardial effusion. Residual thymic tissue as was seen previously. Lungs: No airspace consolidation, infiltrate or pleural effusion. Patent central airways. Mild haziness of the lungs is favored physiologic due to imaging during expiration. Neck/Axilla/Body Wall: Unremarkable thyroid and axilla. Upper Abdomen: No acute abnormality. Bones: No significant change. Miscellaneous: None. IMPRESSION: No pulmonary embolism or other acute abnormality is seen throughout the chest to explain the patient's symptoms. Electronically signed by: MOLLY WHYTE MD (10/05/2020 3:01 AM) [facility] DICTATED AND SIGNED BY: MOLLY WHYTE MD DATE: 10/05/20 0257 CC: YSABEL ENRIQUE MD; JULI GILMORE MD ~[facility] [address] [place] [address] IMAGING REPORT Signed PATIENT: ISABELLE LACKEY LACCOUNT: [id number] : 1995 LOCATION: ER AGE: 25 SEX: F EXAM STATUS: REG ER ORD. PHYSICIAN: YSABEL ENRIQUE MD REASON: resp. dist PROCEDURE: CHEST PA & LATERAL Study: XR CHEST 2V Indication: Respiratory distress. Comparison: 06/01/2020 Findings: No confluent airspace infiltrate, pleural effusion or pneumothorax. Unchanged cardiomediastinal silhouette and teresa. Unchanged asymmetric elevation of the left hemidiaphragm. Gaseous distention of the visualized small and large bowel. Impression: 1. No acute radiographic abnormality of the chest. 2. Redemonstrated mild asymmetric elevation of the left hemidiaphragm. Nons pecific gaseous distention of the visualized small and large bowel centered within the left aspect of the abdomen noting that gaseous distention was also present on the 06/01/2020 comparison. Electronically signed by: MOLLY WHYTE MD (10/05/2020 1:11 AM) [facility] DICTATED AND SIGNED BY: MOLLY WHYTE MD DATE: 10/05/20 0110 CC: YSABEL ENRIQUE MD; JULI GILMORE MD ~MTH0 0 Heart Score: C/O Chest Pain: No HEART Score for Chest Pain: HEART Score for Chest Pain Response (Comments) Value History Moderately Suspicious 1 ECG Nonspecific Repolarizatio 1 Age < 45 0 Risk Factors 1 or 2 Risk Factors 1 Troponin < Normal Limit 0 Total 3 Risk Factors: Risk Factors: DM, Current or recent (<one month) smoker, HTN, HLP, family history of CAD, obesity. Risk Scores: Score 0 - 3: 2.5% MACE over next 6 weeks - Discharge Home Score 4 - 6: 20.3% MACE over next 6 weeks - Admit for Clinical Observation Score 7 - 10: 72.7% MACE over next 6 weeks - Early Invasive Strategies Course & Med Decision Making: Course & Med Decision Making Pertinent Labs and Imaging studies reviewed. (See chart for details) Impression: 1. Asthma Exacerbation 2. Bronchitis 3. Upper Airway Infection/ Dental Infection 4. Elevated Leukocytosis 20.6 with 90 Segs 5. Mild Elevation D-dimer 0.51-patient declines CT evaluation 6. Suspect she has a viral exacerbation of her chronic asthma- COVID 7. Dental infection right molar area 17 Begged Pt. to consider at least a short term admit. Pt. however insistent on Discharge. States will keep follow up with pulmonology. Advised patient return at any time if she elects to be admitted. Best my concerns previously that she has not improved her respiratory status adequately and is still tachycardic at time of discharge. Patient continue prednisone 50 mg a day. Patient to take his Zithromax 250 a day . Call for earlier appointment with pulmonology if possible. Return at any time. Document peak flows in the morning pre and posttreatment keep record. Show this record to primary care and pulmonology. Recommend inpatient practice isolation until results of her Covid test is known. Addendum: -Covid screen positive 8. COVID + [] Dragon Disclaimer: Dragon Disclaimer: This electronic medical record was generated, in whole or in part, using a voice recognition dictation system. Departure Departure: Referrals: JULI GILMORE MD (PCP) Scripts Prednisone (PREDNISONE) 50 Mg Tablet 20 MG PO DAILY for asthma, #100 TAB Prov: YSABEL ENRIQUE MD 10/05/20 Prednisone (PREDNISONE) 10 Mg Tablet 10 MG PO UD for PREDNISONE TAPER, #100 TAB 0 Refills Take 3 tablets by mouth twice a day for 3 days, then take 2 tablets by mouth twice a day for 3 days, then take 1 tablet by mouth twice a day for 3 days, then take 1 tablet by mouth daily x 3 days, then stop. Prov: YSABEL ENRIQUE MD 10/05/20 Prednisone (PREDNISONE) 50 Mg Tablet 50 MG PO DAILY for asthma, #10 TAB Prov: YSABEL ENRIQUE MD 10/05/20 Azithromycin (ZITHROMAX) 250 Mg Tablet 250 MG PO DAILY for ANTI-BIOTIC for 5 Days, #5 TAB 0 Refills Prov: YSABEL ENRIQUE MD 10/05/20 Dragon Disclaimer This chart was dictated in whole or in part using Voice Recognition software in a busy, high-work load, and often noisy Emergency Department environment. It may contain unintended and wholly unrecognized errors or omissions. Dragon Disclaimer This chart was dictated in whole or in part using Voice Recognition software in a busy, high-work load, and often noisy Emergency Department environment. It may contain unintended and wholly unrecognized errors or omissions. YSABEL ENRIQUE MD Oct 04, 2020 23:23
[2020-10-04] MEDS ORDERED: IPRATRPIUM/ALBUTEROL 0.5/2.5MG 3 ML NEBU. ONE (23:25)
[2020-10-04] MEDS ORDERED: IPRATRPIUM/ALBUTEROL 0.5/2.5MG 3 ML NEBU. NEB ONE (23:30)
[2020-10-04] MEDS ORDERED: IV RINGERS SOLUTION,LACTATED 1,000 ML IV SCH (23:45)
[2020-10-04] MEDS ORDERED: MAGNESIUM SULFATE 2GM 50 ML IV ONE (23:45)
[2020-10-04] MEDS ORDERED: methylPREDNISolone SOD SUCC PF 125 MG/2 ML VIAL. IV ONE (23:45)
[2020-10-04] MEDS ORDERED: AZITHROMYCIN 250 MG TABLET. PO ONE (23:45)
[2020-10-05] MEDS ORDERED: IPRATRPIUM/ALBUTEROL 0.5/2.5MG 3 ML NEBU. NEB ONE
[2020-10-05 00:06] LABS: ANION GAP 13 (6-14); BASO % 0 % (0-3); BLOOD UREA NITROGEN 15 mg/dL (7-20); CALCIUM 9.6 mg/dL (8.5-10.1); CARBON DIOXIDE 21 mmol/L (21-32); CHLORIDE 103 mmol/L (98-107); CREATININE 0.8 mg/dL (0.6-1.0); EOS % 0 % (0-3); GLUCOSE 136 mg/dL (70-99); HEMATOCRIT 41.8 % (36.0-47.0); HEMOGLOBIN 13.4 g/dL (12.0-15.5); LYMPH # 0.9 x10^3/uL (1.0-4.8); LYMPH % 5 % (24-48); MEAN CORPUSCULAR HEMOGLOBIN 29 pg (25-35); MEAN CORPUSCULAR HGB CONC 32 g/dL (31-37); MEAN CORPUSCULAR VOLUME 89 fL (79-100); MONO # 0.3 x10^3/uL (0.0-1.1); MONO % 1 % (0-9); NEUT # 19.4 x10^3uL (1.8-7.7); NEUT % 94 % (31-73); PLATELET COUNT 382 x10^3/uL (140-400); POTASSIUM 4.4 mmol/L (3.5-5.1); RED BLOOD COUNT 4.72 x10^6/uL (3.50-5.40); RED CELL DISTRIBUTION WIDTH 15.8 % (11.5-14.5); SODIUM 137 mmol/L (136-145); WHITE BLOOD COUNT 20.6 x10^3/uL (4.0-11.0)
[2020-10-05 00:18] LABS: ALBUMIN 4.4 g/dL (3.4-5.0); ALK PHOS 77 U/L (46-116); ALT (SGPT) 20 U/L (14-59); AST (SGOT) 20 U/L (15-37); MAGNESIUM 2.1 mg/dL (1.8-2.4); TOTAL BILIRUBIN 0.2 mg/dL (0.2-1.0); TOTAL PROTEIN 8.2 g/dL (6.4-8.2)
[2020-10-05 00:29] LABS: DIRECT BILIRUBIN < 0.1 mg/dL (0.0-0.2)
[2020-10-05 00:37] LABS: % BANDS 2 % (0-9); % LYMPHS 7 % (24-48); % MONOS 1 % (0-10); % SEGS 90 % (35-66); PLT ESTIMATE ADEQUATE (ADEQUATE)
--- NOTE | 2020-10-05 01:14 | RAD ---
Study: XR CHEST 2V Indication: Respiratory distress. Comparison: 06/01/2020 Findings: No confluent airspace infiltrate, pleural effusion or pneumothorax. Unchanged cardiomediastinal silho uette and teresa. Unchanged asymmetric elevation of the left hemidiaphragm. Gaseous distention of the visualized small and large bowel. Impression: 1. No acute radiographic abnormality of the chest. 2. Redemonstrated mild asymmetric elevation of the left hemidiaphragm. Nonspecific gaseous distention of the visualized small and large bowel centered within the left aspect of the abdomen noting that g aseous distention was also present on the 06/01/2020 comparison. Electronically signed by: MOLLY WHYTE MD (10/05/2020 1:11 AM) [facility]
[2020-10-05] MEDS ORDERED: VANCOMYCIN PER PHARMACY MC PRN (01:15)
[2020-10-05] MEDS ORDERED: VANCOMYCIN 1 GM in IV NORMAL SALINE 250ML 250 ML IV ONE (01:15)
[2020-10-05] MEDS ORDERED: IOHEXOL 350 MG/ML 100 ML VIAL. IV ONE (01:30)
[2020-10-05] MEDS ORDERED: IV NORMAL SALINE 250ML 250 ML ONE (02:43)
[2020-10-05] MEDS ORDERED: VANCOMYCIN 1 GM VIAL. ONE (02:44)
[2020-10-05 02:55] VITALS: BP 148/68
[2020-10-05] MEDS ORDERED: APIXABAN 5 MG TABLET. PO STA (02:56)
[2020-10-05 03:01] LABS: BACTERIA,URINE FEW /HPF (0-FEW); BILIRUBIN,URINE NEG (NEG); CLARITY,URINE HAZY; COLOR,URINE YELLOW; GLUCOSE,URINE NEG (NEG); NITRITE,URINE NEG (NEG); RBC,URINE 0 /HPF (0-2); SQUAMOUS EPITHELIAL CELL,UR FEW /LPF; UROBILINOGEN,URINE 0.2 mg/dL (0.2 mg/dL); WBC,URINE 0 /HPF (0-4)
--- NOTE | 2020-10-05 03:03 | RAD ---
Study: CT CHEST WITH CONTRAST - PULMONARY ANGIOGRAM History: Dyspnea. Embolism. Comparison: CT chest 09/18/2019 Technique: Helical CT of the chest performed after the administration of 90 cc Omnipaque 350 intrave nous contrast and timed for angiographic evaluation of the pulmonary arteries per PE protocol. Michael l and sagittal 3D MIP reformations were obtained. One or more of the following individualized dose reduction techniques were utilized for this examinat ion: 1. Automated exposure control 2. Adjustment of the mA and/or kV according to patient size 3. Use of iterative reconstruction technique. Findings: Pulmonary Arteries: No main, lobar or segmental pulmonary embolism. Main pulmonary artery caliber is within normal limits. Heart/Systemic Vasculature: No aortic aneurysm or dissection. The visualized great vessels are patent . The left vertebral artery originates from the arch. No CT manifestations of overt right heart strai n. Mediastinum: No lymphadenopathy or pericardial effusion. Residual thymic tissue as was seen previousl y. Lungs: No airspace consolidation, infiltrate or pleural effusion. Patent central airways. Mild hazine ss of the lungs is favored physiologic due to imaging during expiration. Neck/Axilla/Body Wall: Unremarkable thyroid and axilla. Upper Abdomen: No acute abnormality. Bones: No significant change. Miscellaneous: None. IMPRESSION: No pulmonary embolism or other acute abnormality is seen throughout the chest to explain the patient' s symptoms. Electronically signed by: MOLLY WHYTE MD (10/05/2020 3:01 AM) [facility]
[2020-10-05] MEDS ORDERED: PRED-220 PO (04:15)
[2020-10-05] MEDS ORDERED: AZIT250T PO (04:15)
[2020-10-05] MEDS ORDERED: PRED50TA PO (04:15)
--- NOTE | 2020-10-05 06:46 | EKG ---
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
== END 2020-10-05 04:30 | disposition home or self-care (01) ==
LOC: ER 23:00
DX: U07.1 COVID-19 (principal); J45.901 Unspecified asthma with (acute) exacerbation; D72.829 Elevated white blood cell count, unspecified; K04.7 Periapical abscess without sinus
CPT/HCPCS: 71046; 71275; 80048; 80076; 81001; 82550; 83735; 83880; 84484; 84702; 85007; 85025; 85379; 85610; 85730; 93005; 94640; 96365; 96366; 96367; 96375; 99285; C9803; J2930; J3370; J3475; J7050; J7120; Q9967; U0003